=== PATIENT | female | born 1970 | race Caucasian/White ===

== ENCOUNTER 2017-04-28 02:16 | Emergency (ER) | payer BC ==
[2017-04-28 02:23] VITALS: TEMP 97.7
--- NOTE | 2017-04-28 02:27 | EDPHY ---
H & P Stated Complaint: R rib pain 2/2 [facility] fall HPI/ROS: HPI CHIEF COMPLAINT: Fall, right posterior back and rib pain, right CVA HISTORY OF PRESENT ILLNESS: This patient very pleasant 46-year-old female she otherwise healthy no significant medical history she presents emergency room after she sustained a fall this evening approximately an hour ago. She states she was cooking dinner this evening. She was drinking Tequila. She states that she had 4-6 shots of Tequila. After drinking Tequila in eating dinner she showered and went to go to bed. Upon going to bed the room was dark she tried to get up into the bed and fell. She landed on her right posterior rib region. Sustained immediate pain. She presents emergency room with right CVA tenderness on exam 10/10 pain. Worse when she moves. Distally worse when she takes a deep breath in. She denies head injury or neck pain. She is not on any anticoagulation Past Medical History: No medical history Past Surgical History: No surgical history Social History: Occasional alcohol use, denies illicit drugs or tobacco. 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 Family History: Noncontributory ROS REVIEW OF SYSTEMS: A comprehensive 10 point review of systems is otherwise negative aside from elements mentioned in the history of present illness. Exam Constitutional appears to be in pain, anxious, tearful triage nursing summary reviewed, vital signs reviewed, awake/alert. Eyes normal conjunctivae and sclera, EOMI, PERRLA. HENT normal inspection, atraumatic, moist mucus membranes, no epistaxis, neck supple/ no meningismus, no raccoon eyes. Respiratory clear to auscultation bilaterally, normal breath sounds, no respiratory distress, no wheezing. Cardiovascular rate normal, regular rhythm, no murmur, no edema, distal pulses normal. Gastrointestinal soft, non-tender, no rebound, no guarding, normal bowel sounds, no distension, no pulsatile mass. Genitourinary: Exquisitely Tender palpation over the right CVA, no significant ecchymosis flail chest. No crepitus. Musculoskeletal no midline vertebral tenderness, full range of motion, no calf swelling, no tenderness of extremities, no meningismus, good pulses, neurovascularly intact. Skin pink, warm, & dry, no rash, skin atraumatic. Neurologic awake, alert and oriented x 3, AAOx3, moves all 4 extremities equally, motor intact, sensory intact, CN II-XII intact, normal cerebellar, normal vision, normal speech. Psychiatric normal mood/affect. Heme/Lymph/Immune no lymphadenopathy. Differential Diagnosis: Includes but is not limited to in a particular order: Rib fracture, pneumothorax, CVA contusion, retroperitoneal bleed, blunt force trauma, renal laceration Medical Decision Making: Plan for this patient she is in significant pain to her right CVA region from a fall. Will proceed with IV placement, IV fluid bolus, IV fentanyl for pain control check basic blood work including alcohol level, start off with x-ray two view with rib series to evaluate for pneumothorax or rib fracture. Also will most likely need to CT scan her kidney him back. She has no midline thoracic or lumbar back pain. She has no leg weakness numbness or tingling. No pain radiates down her leg. Re-evaluation: ED x-ray chest two view with rib series. Negative for acute fracture. No pneumothorax appreciated. Unremarkable x-ray. Given the amount of pain the patient is having. Will proceed with CT scan abdomen pelvis with IV contrast rule out significant trauma including kidney trauma or back trauma. CT scan of the abdomen pelvis with IV contrast for trauma. The results of the study are this shows a right 10th rib fracture, with surrounding edema also possibly a subcapsular bleed of the liver. Small. 4 cm by 0.6 cm. The study was read by Dr. Boswell. I viewed the images myself on the PACS system. 0451AM: This patient remains hemodynamically stable no acute distress. She does complain of right lateral rib pain when she moves. This time I have consult Dr. Perry with Trauma surgery to evaluate the patient. She does have an isolated 10th rib fracture. Additionally there is either blood around this rib or a subcapsular hemorrhage of the liver. She remains hemodynamically stable. I have updated patient. Pain is controlled at this time when she does not move. Patient may need to be admitted for observation. 0554AM: Dr. Perry has seen and evaluated the patient. Does not feel that the patient is to be admitted. Does not feel that this is a liver laceration or significant bleed. Patient would like to go home. Dr. Perry did offer admission the patient for observation today however she declined. Patient feels comfortable and would like to go home. She is hemodynamically stable. She has been given return precautions understands return to the ER for worsening symptoms includes worsening pain, abdominal pain, syncope, fever questions or concerns she understands. Source: Patient - Personal History LMP (Females 10-55): 8-14 Days Ago Current Tetanus/Diphtheria Vaccine: Yes Current Tetanus Diphtheria and Acellular Pertussis (TDAP): Yes - Medical/Surgical History Hx Asthma: No Hx Chronic Respiratory Disease: No Hx Diabetes: No Hx Cardiac Disease: No Hx Renal Disease: No Hx Cirrhosis: No Hx Alcoholism: No Hx HIV/AIDS: No Hx Splenectomy or Spleen Trauma: No Other PMH: denies - Social History Smoking Status: Never smoked Constitutional: Initial Vital Signs Temperature (C) 36.5 C 04/28/17 02:21 Heart Rate 102 H 04/28/17 02:21 Respiratory Rate 24 H 04/28/17 02:21 Blood Pressure 139/93 H 04/28/17 02:21 O2 Sat (%) 97 04/28/17 02:21 O2 Delivery Mode Nasal Cannula O2 (L/minute) 2 Allergies/Adverse Reactions: lidocaine Allergy (Verified 04/28/17 02:20) Home Medications: Medication Instructions Recorded Hydrocodone/APAP 5/325 [[place] 1 - 2 tab PO Q4H PRN #10 tab 04/28/17 5/325] Ibuprofen [Motrin (*)] 800 mg PO Q6-8PRN #10 tab 04/28/17 Medical Decision Making - Data Points Laboratory Results: Laboratory Results 04/28/17 02:55 04/28/17 02:55 04/28/17 04/28/17 04/28/17 04:20 02:55 02:55 WBC RBC Hgb Hct MCV MCH MCHC RDW Plt Count MPV Neut % (Auto) Lymph % (Auto) [place] % (Auto) Eos % (Auto) Baso % (Auto) Nucleat RBC Rel Count Absolute Neuts (auto) Absolute Lymphs (auto) Absolute Monos (auto) Absolute Eos (auto) Absolute Basos (auto) Absolute Nucleated RBC Immature Gran % Immature Gran # PT INR APTT Sodium 144 mEq/L mEq/L (134-144) Potassium 4.2 mEq/L mEq/L (3.5-5.2) Chloride 105 mEq/L mEq/L (97-110) Carbon Dioxide 23 mEq/l mEq/l (22-31) Anion Gap 16 mEq/L mEq/L (8-16) BUN 10 mg/dL mg/dL (7-23) Creatinine 0.6 mg/dL mg/dL (0.6-1.0) Estimated GFR > 60 Glucose 129 mg/dL H mg/dL (70-100) Calcium 9.0 mg/dL mg/dL (8.5-10.4) Beta HCG, Qual NEGATIVE Urine Color PALE YELLOW Urine Appearance CLEAR Urine pH 7.0 (5.0-7.5) Ur Specific [place] 1.014 (1.002-1.030) Urine Protein NEGATIVE (NEGATIVE) Urine Ketones NEGATIVE (NEGATIVE) Urine Blood 1+ H (NEGATIVE) Urine Nitrate NEGATIVE (NEGATIVE) Urine Bilirubin NEGATIVE (NEGATIVE) Urine Urobilinogen NEGATIVE EU EU (0.2-1.0) Ur Leukocyte Esterase NEGATIVE (NEGATIVE) Urine RBC 1-3 /hpf /hpf (0-3) Urine WBC 1-3 /hpf /hpf (0-3) Ur Epithelial Cells TRACE /lpf /lpf (NONE-1+) Urine Bacteria TRACE /hpf H /hpf (NONE SEEN) Urine Glucose NEGATIVE (NEGATIVE) Ethyl Alcohol 175 mg/dL H mg/dL (0-10) 04/28/17 04/28/17 02:55 02:55 WBC 11.54 10^3/uL H 10^3/uL (3.80-9.50) RBC 4.43 10^6/uL 10^6/uL (4.18-5.33) Hgb 13.7 g/dL g/dL (12.6-16.3) Hct 40.7 % % (38.0-47.0) MCV 91.9 fL fL (81.5-99.8) MCH 30.9 pg pg (27.9-34.1) MCHC 33.7 g/dL g/dL (32.4-36.7) RDW 13.2 % % (11.5-15.2) Plt Count 319 10^3/uL 10^3/uL (150-400) MPV 8.9 fL fL (8.7-11.7) Neut % (Auto) 82.6 % H % (39.3-74.2) Lymph % (Auto) 11.8 % L % (15.0-45.0) [place] % (Auto) 4.3 % L % (4.5-13.0) Eos % (Auto) 0.3 % L % (0.6-7.6) Baso % (Auto) 0.3 % % (0.3-1.7) Nucleat RBC Rel Count 0.0 % % (0.0-0.2) Absolute Neuts (auto) 9.53 10^3/uL H 10^3/uL (1.70-6.50) Absolute Lymphs (auto) 1.36 10^3/uL 10^3/uL (1.00-3.00) Absolute Monos (auto) 0.50 10^3/uL 10^3/uL (0.30-0.80) Absolute Eos (auto) 0.03 10^3/uL 10^3/uL (0.03-0.40) Absolute Basos (auto) 0.04 10^3/uL 10^3/uL (0.02-0.10) Absolute Nucleated RBC 0.00 10^3/uL 10^3/uL (0-0.01) Immature Gran % 0.7 % % (0.0-1.1) Immature Gran # 0.08 10^3/uL 10^3/uL (0.00-0.10) PT 11.9 SEC L SEC (12.0-15.0) INR 0.89 (0.83-1.16) APTT 27.6 SEC SEC (23.0-38.0) Sodium Potassium Chloride Carbon Dioxide Anion Gap BUN Creatinine Estimated GFR Glucose Calcium Beta HCG, Qual Urine Color Urine Appearance Urine pH Ur Specific [place] Urine Protein Urine Ketones Urine Blood Urine Nitrate Urine Bilirubin Urine Urobilinogen Ur Leukocyte Esterase Urine RBC Urine WBC Ur Epithelial Cells Urine Bacteria Urine Glucose Ethyl Alcohol Medications Given: Discontinued Medications Fentanyl (Sublimaze) 75 mcg IVP EDNOW ONE Stop: 04/28/17 02:33 Last Admin: 04/28/17 02:49 Dose: 75 mcg Sodium Chloride (Ns) 1,000 mls @ 0 mls/hr IV ONCE ONE; Wide Open PRN Reason: Protocol Stop: 04/28/17 02:33 Last Admin: 04/28/17 02:49 Dose: 1,000 mls Ketorolac Tromethamine (Toradol) 15 mg IVP EDNOW ONE Stop: 04/28/17 03:33 Last Admin: 04/28/17 03:35 Dose: 15 mg Ondansetron HCl (Zofran) 4 mg IVP EDNOW ONE Stop: 04/28/17 02:33 Last Admin: 04/28/17 02:49 Dose: 4 mg Departure - Departure Disposition: Home, Routine, Self-Care Clinical Impression: Rib fracture Qualifiers: Encounter type: initial encounter Rib fracture type: single rib Fracture type: closed Laterality: right Qualified Code(s): S22.31XA - Fracture of one rib, right side, initial encounter for closed fracture Condition: Good Instructions: Rib Fracture (ED) Additional Instructions: 1. Return emergency room if there is worsening symptoms includes worsening pain you do not feel well lightheadedness abdominal pain fever shortness of breath or chest pain or questions or concerns. 2. You have a 10th rib fracture. 3. Take it easy, ibuprofen for pain. [place] for severe pain Referrals: NONE *PRIMARY CARE P,. [Primary Care Provider] - As per Instructions Prescriptions: Hydrocodone/APAP 5/325 [[place] 5/325] 1 - 2 tab PO Q4H PRN #10 tab PRN Reason: Pain, Moderate Ibuprofen [Motrin (*)] 800 mg PO Q6-8PRN #10 tab
[2017-04-28] MEDS ORDERED: ONDANSETRON 4 MG/2 ML VIAL IVP ONE (02:32)
[2017-04-28] MEDS ORDERED: NS 1,000 ML IV ONE (02:32)
[2017-04-28] MEDS ORDERED: fentaNYL 100 MCG/2 ML INJ IVP ONE (02:32)
[2017-04-28 03:02] LABS: % IMMATURE GRANULYOCYTES 0.7 % (0.0-1.1); ABSOLUTE IMMATURE GRANULOCYTES 0.08 10^3/uL (0.00-0.10); ADD DIFF? NO; ADD MORPH? NO; ADD SCAN? NO; ATYPICAL LYMPHOCYTE FLAG 10 (0-99); FRAGMENT RBC FLAG 0 (0-99); HEMATOCRIT 40.7 % (38.0-47.0); HEMOGLOBIN 13.7 g/dL (12.6-16.3); LEFT SHIFT FLG 0 (0-99); LIPEMIA HEMOLYSIS FLAG 80 (0-99); MEAN CELL HEMOGLOBIN 30.9 pg (27.9-34.1); MEAN CELL HEMOGLOBIN CONCENTR. 33.7 g/dL (32.4-36.7); MEAN CELL VOLUME 91.9 fL (81.5-99.8); MEAN PLATELET VOLUME 8.9 fL (8.7-11.7); PLATELET CLUMPS FLAG 0 (0-99); PLATELET COUNT 319 10^3/uL (150-400); RED BLOOD CELL COUNT 4.43 10^6/uL (4.18-5.33); RED CELL DISTRIBUTION WIDTH 13.2 % (11.5-15.2)
[2017-04-28] MEDS ORDERED: HYDROmorphONE/DILAUDID 1 MG/ML INJ IVP ONE (03:08)
[2017-04-28 03:11] LABS: APTT 27.6 SEC (23.0-38.0); INR 0.89 (0.83-1.16); PROTIME(PATIENT) 11.9 SEC (12.0-15.0)
[2017-04-28 03:14] LABS: ANION GAP 16 mEq/L (8-16); CARBON DIOXIDE 23 mEq/l (22-31); CHLORIDE 105 mEq/L (97-110); CREATININE 0.6 mg/dL (0.6-1.0); ETHANOL SERUM 175 mg/dL (0-10); GLOMERULAR FILTRATION RATE > 60; GLUCOSE 129 mg/dL (70-100); POTASSIUM 4.2 mEq/L (3.5-5.2); SODIUM 144 mEq/L (134-144)
[2017-04-28] MEDS ORDERED: IOPAMIDOL (ISOVUE-300) 100 ML BTL ONE (03:30)
[2017-04-28] MEDS ORDERED: KETOROLAC 15 MG/1 ML SDV IVP ONE (03:32)
[2017-04-28] MEDS ORDERED: KETOROLAC 15 MG/1 ML SDV ONE (03:33)
[2017-04-28 04:31] LABS: COLOR PALE YELLOW; LEUKOCYTE ESTERASE,URINE NEGATIVE (NEGATIVE); NITRITE,URINE NEGATIVE (NEGATIVE)
[2017-04-28 04:33] LABS: BACTERIA TRACE /hpf (NONE SEEN)
[2017-04-28 04:45] VITALS: BP 124/82; PULSE 97; RESP 18; O2SAT 98
--- NOTE | 2017-04-28 06:00 | PDCONSULT ---
Marketing Database Analyst Note: CC: fall at home with right lateral chest wall pain HPI: 46 y/o female who slipped and fell at home and landed on her right side. She had immediate pain in the area and came to the ED. Dr. Chavez performed a CT and discovered a right 10th rib fracture and surgical consult was requested. She denies LOC, N/V, back pain, paresthesias. 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 No evidence of hepatic injury Imp: isolated right 10th rib fx. Rec: We discussed options including observation at home vs. admission for pain control She is comfortable going home and will return as needed. I gave her my card and contact information for outpatient follow up as needed Percocet #[id number] Paul-S #30 S MD Vicky, FACS
== END 2017-04-28 06:04 | disposition home or self-care (01) ==
PROC: 3E0337Z Introduction of Electrolytic and Water Balance Substance into Peripheral Vein, Percutaneous Approach (ICD-10-PCS; principal; 2017-04-28)
DX: S22.31XA Fracture of one rib, right side, initial encounter for closed fracture (principal); E86.9 Volume depletion, unspecified; W18.39XA Other fall on same level, initial encounter
CPT/HCPCS: 96374; G0480; J1885; J2405; J3010; Q9967